=== PATIENT | female | born 1970 | race Caucasian/White ===

== ENCOUNTER 2024-03-10 03:20 | Observation (INO) | payer OTHER ==
[2024-03-10 06:21] LABS: INR 0.9 (<1.2); Partial Thromboplastin Time 22.8 sec (22.0-30.0); Prothrombin Time 10.4 sec (10.0-12.5)
[2024-03-10 06:25] LABS: ALT 17 U/L (4-34); AST 33 U/L (14-36); African American GFR (CKD) >90 (>60 ml/min/1.73 sqM); Albumin 4.6 g/dL (3.5-5.0); Alkaline Phosphatase 86 U/L (38-126); Anion Gap 5 mmol/L; Blood Urea Nitrogen 9 mg/dL (7-17); Calcium 9.2 mg/dL (8.4-10.2); Carbon Dioxide 24 mmol/L (22-30); Chloride 108 mmol/L (98-107); Glucose 97 mg/dL (74-99); Magnesium 1.9 mg/dL (1.6-2.3); Non-African American GFR(CKD) 90 (>60 ml/min/1.73 sqM); Potassium 4.2 mmol/L (3.5-5.1); Sodium 137 mmol/L (137-145); Total Bilirubin 0.6 mg/dL (0.2-1.3)
[2024-03-10 06:27] LABS: Basophils # (A) 0.1 k/uL (0-0.2); Basophils % (A) 0 %; Eosinophils # (A) 0.1 k/uL (0-0.7); Eosinophils % (A) 1 %; HCT 40.9 % (34.0-46.0); HGB 13.1 gm/dL (11.4-16.0); Lymphocytes # (A) 0.8 k/uL (1.0-4.8); Lymphocytes % (A) 5 %; MCH 31.7 pg (25.0-35.0); MCHC 32.1 g/dL (31.0-37.0); MCV 98.9 fL (80.0-100.0); Mean Platelet Volume 7.3; Monocytes # (A) 0.8 k/uL (0-1.0); Monocytes % (A) 4 %; Neutrophils # (A) 16.1 k/uL (1.3-7.7); Neutrophils % (A) 90 %; Platelet Count 278 k/uL (150-450); RBC 4.14 m/uL (3.80-5.40); RDW 12.6 % (11.5-15.5); WBC 17.9 k/uL (3.8-10.6)
--- NOTE | 2024-03-10 06:31 | XR ---
EXAM: XR Chest, 2 Views CLINICAL HISTORY: Chest Pain TECHNIQUE: Frontal and lateral views of the chest. COMPARISON: No relevant prior studies available. FINDINGS: Lungs: Unremarkable. No consolidation. Pleural space: Unremarkable. Mediastinum: Unremarkable. Normal mediastinal contour. Bones/joints: Artificial disc replacement of lower cervical spine. IMPRESSION: No acute findings in the chest.
--- NOTE | 2024-03-10 06:58 | ED ---
Chest Pain HPI - General Chief Complaint: Chest Pain Stated Complaint: Chest pain Time Seen by Provider: 03/10/24 06:29 Source: patient, RN notes reviewed Mode of arrival: ambulatory Limitations: no limitations - History of Present Illness Initial Comments: This is a 53-year-old female who presents to the emergency department for chest pain. States that last night around 9 PM she had a generalized discomfort in her chest and around 1 AM the pain became much more severe. States that she also felt like she could not take a deep breath. She was given aspirin and nitro by EMS. States that her pain went from a 9-10 down to a 3, however it took a while for the pain to come down. Since being in the waiting room her pain has started to creep back up to a 5-6 out of 10. She did have a stress test with Dr. Bowens a couple of weeks ago, but has not heard back regarding the results. She has a family history of premature coronary artery disease in her father. Denies any history of heart attacks or stents. MD Complaint: chest pain - Related Data Home Medications Medication Instructions Recorded Confirmed ALPRAZolam [Xanax] 0.25 - 0.5 mg PO Q6H PRN 03/10/24 03/10/24 HYDROcodone/APAP 10-325MG [[place] 1 tab PO Q6H PRN 03/10/24 03/10/24 10-325] Loratadine [Claritin] 10 mg PO DAILY 03/10/24 03/10/24 Losartan [Cozaar] 50 mg PO DIRECTED 03/10/24 03/10/24 Omeprazole 20 mg PO DAILY 03/10/24 03/10/24 Allergies Allergy/AdvReac Type Severity Reaction Status Date / Time bee venom protein (honey bee) Allergy Anaphylaxis Verified 03/10/24 08:17 epinephrine Allergy Anaphylaxis, Verified 03/10/24 08:17 seizures onion Allergy Anaphylaxis Verified 03/10/24 08:17 Influenza Virus Vaccines AdvReac seizures Verified 03/10/24 08:17 rosuvastatin [From Crestor] AdvReac Nausea & Verified 03/10/24 08:17 Vomiting Review of Systems ROS Statement: Those systems with pertinent positive or pertinent negative responses have been documented in the HPI. ROS Other: All systems not noted in ROS Statement are negative. Past Medical History Past Medical History: Cancer, GERD/Reflux, Hypertension Additional Past Medical History / Comment(s): back pain, bladder CA , History of Any Multi-Drug Resistant Organisms: None Reported Past Surgical History: Appendectomy, Back Surgery, Hysterectomy Past Psychological History: Anxiety, Bipolar Smoking Status: Current every day smoker Past Alcohol Use History: Rare Past Drug Use History: Marijuana General Exam Limitations: no limitations General appearance: alert, in no apparent distress Head exam: Present: atraumatic, normocephalic, normal inspection Respiratory exam: Present: normal lung sounds bilaterally. Absent: respiratory distress, wheezes, rales, rhonchi, stridor Cardiovascular Exam: Present: regular rate, normal rhythm, normal heart sounds. Absent: systolic murmur, diastolic murmur, rubs, gallop, clicks GI/Abdominal exam: Present: soft, tenderness (LUQ), normal bowel sounds. Absent: distended, guarding, rebound, rigid Neurological exam: Present: alert, oriented X3, CN II-XII intact Psychiatric exam: Present: normal affect, normal mood Skin exam: Present: warm, dry, intact, normal color. 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 Was pt. sent in by a medical professional or institution? @ -No Did you speak to anyone other than the patient for history? @ -No Did you review nursing and triage notes? @ -Yes, and I agree, it is accurate with regards to the patient's symptoms. Were old charts reviewed? @ -No Differential Diagnosis? @ -Differential Chest Pain: Stable Angina, Unstable Angina, STEMI, NSTEMI Aortic Dissection, Pneumothorax, Musculoskeletal, Esophageal Spasm GERD, Cholecystitis, Pancreatitis, Zoster, this is not meant to be an all-inclusive list. EKG interpreted by me (3pts min.)? @ -EKG interpreted by me demonstrating the following: Sinus rhythm. Ventricular rate 70 bpm, NM interval 136 ms, QRS duration 77 ms, QTc 415 ms. X-rays interpreted by me (1pt min.)? @ -Chest x-ray obtained, my interpretation identifies no localized consolidations or infiltrates. CT interpreted by me (1pt min.)? @ -Not obtained U/S interpreted by me (1pt. min.)? @ -Not obtained What testing was considered but not performed? (CT, X-rays, U/S, labs)? Why? @ -None What meds were considered but not given? Why? @ -None Did you discuss the management of the patient with other professionals? @ -Yes, Dr. Amaral, who accepts the patient for admission. Did you reconcile home meds? @ -Yes Was smoking cessation discussed for >3mins.? @ -No Was critical care preformed (if so, how long)? @ -No Were there social determinants of health that impacted care today? How? (Homelessness, low income, unemployed, alcoholism, drug addiction, transportation, low edu. Level, literacy, decrease access to med. care, fci, rehab)? @ -No Was there de-escalation of care discussed even if they declined? (Discuss DNR or withdrawal of care, Hospice)? @ -No What co-morbidities impacted this encounter? (DM, HTN, Smoking, COPD, CAD, Cancer, CVA, Hep., AIDS, mental health diagnosis, sleep apnea, morbid obesity)? @ -GERD, HTN Was patient admitted / discharged? @ -Admitted. Lab work demonstrates leukocytosis with a white blood cell count of 17.9. Lab work was otherwise unremarkable. Troponin and D-dimer negative. Chest x-ray reveals no acute process. When the patient's pain began early this morning it was originally around an 8-9 out of 10. After receiving nitro and aspirin from EMS the pain reduced down to a 3. Pain did start to creep back up while the patient was in the waiting room, and when she was brought back in the emergency department Nitropaste was applied. Given the patient's symptoms, improvement with nitroglycerin, and strong family history of CAD, patient admitted to medicine for cardiac observation. Serial troponins ordered and consult was placed for cardiology. Urinalysis ordered with results pending at the time of admission to evaluate for other potential causes of the leukocytosis. Undiagnosed new problem with uncertain prognosis? @ -None Drug Therapy requiring intensive monitoring for toxicity (Heparin, Nitro, Insulin, Cardizem)? @ -None Were any procedures done? @ -None Diagnosis/symptom? @ -Chest pain Acute, or Chronic, or Acute on Chronic? @ -Acute Uncomplicated (without systemic symptoms) or Complicated (systemic symptoms)? @ -Uncomplicated Side effects of treatment? @ -None Exacerbation, Progression, or Severe Exacerbation] @ -Not applicable Poses a threat to life or bodily function? @ -Yes, ACS can lead to This case was discussed in detail with the attending ED physician, Dr. Broussard. Presentation, findings, and treatment plan discussed in detail as well. Disposition Clinical Impression: Chest pain Disposition: ADMITTED IP TO THIS HOSP Referrals: Celestine Gross MD [Primary Care Provider] - 1-2 days Time of Disposition: 07:57
[2024-03-10] MEDS ORDERED: ONDANSETRON 4 MG/2 ML VIAL IVP PRN (07:57)
[2024-03-10] MEDS ORDERED: NALOXONE 0.4 MG/ML 1 ML VIAL IV PRN (07:57)
[2024-03-10] MEDS ORDERED: KETOROLAC 15 MG/ML 1 ML VIAL IVP PRN (07:57)
[2024-03-10] MEDS ORDERED: HYDROcodone/APAP 5-325MG 1 EACH TAB PO PRN (07:57)
[2024-03-10] MEDS: SODIUM CHLORIDE 0.9% 1,000 ML IV STA (08:01)
[2024-03-10] MEDS: NITROGLYCERIN OINT 1 INCH/GM PACKET TOPICAL STA (08:01)
[2024-03-10 08:12] LABS: Amylase 57 U/L (30-110); Lipase 63 U/L (23-300)
[2024-03-10] MEDS: PANTOPRAZOLE 40 MG/10 ML VIAL IV SCH (08:18)
[2024-03-10] MEDS ORDERED: ALPRAZolam 0.25 MG TAB PO PRN (08:26)
[2024-03-10] MEDS ORDERED: HYDROcodone/APAP 10-325MG 1 EACH TAB PO PRN (08:26)
[2024-03-10] MEDS ORDERED: LOSARTAN 50 MG TAB PO SCH (08:30)
[2024-03-10] MEDS: MORPHINE SULFATE 4 MG/ML SYRINGE IV PRN (08:35)
[2024-03-10] MEDS: PANTOPRAZOLE 40 MG TABLET PO SCH (09:20)
--- NOTE | 2024-03-10 10:05 | P.HPIM ---
History of Present Illness H&P Date: 03/10/24 History of present illness; patient 53-year-old lady with past medical history significant for hypertension who presented to ER because of chest pain. Patient stated that she was all right last night when she started experiencing chest discomfort that was central in location, nonradiating, pressure-like, aggravated by taking deep breaths no relieving factor associated with this chest pain. Gradually the pain worsened and around 1 AM in the morning pain became very worse so she had to come to the ER. Patient denies any shortness of breath. There is no complaint of palpitation. Denies nausea, vomiting abdominal pain. There is no complaint orthopnea or PND. Patient does follow-up with cardiology and did have a recent stress test done the results of which are unknown to her. Initial lab work done in the ER showed WBC 17.9, hemoglobin 13.1, platelet count 278, sodium 137, potassium 4.2, BUN 9, creatinine 0.76, AST 33, ALT 17, troponin 0.012, lipase 63 EKG done in the ER showed heart rate of 70, no ST segment elevation or depression seen, no T-wave inversions seen. Chest x-ray done in the ER showed no acute finding in the chest Patient admitted to internal medicine service REVIEW OF SYSTEMS: CONSTITUTIONAL: No fever, no malaise, no fatigue. HEENT: No recent visual problems or hearing problems. Denied any sore throat. CARDIOVASCULAR: As mentioned above PULMONARY: No shortness of breath, no cough, no hemoptysis. GASTROINTESTINAL: No diarrhea, no nausea, no vomiting, no abdominal pain. NEUROLOGICAL: No headaches, no weakness, no numbness. HEMATOLOGICAL: Denies any bleeding or petechiae. GENITOURINARY: Denies any burning micturition, frequency, or urgency. MUSCULOSKELETAL/RHEUMATOLOGICAL: Denies any joint pain, swelling, or any muscle pain. ENDOCRINE: Denies any polyuria or polydipsia. The rest of the 14-point review of systems is negative. PHYSICAL EXAMINATION: GENERAL: The patient is alert and oriented x3, not in any acute distress. Well developed, well nourished. HEENT: Pupils are round and equally reacting to light. EOMI. No scleral icterus. No conjunctival pallor. Normocephalic, atraumatic. No pharyngeal erythema. No thyromegaly. CARDIOVASCULAR: S1 and S2 present. No murmurs, rubs, or gallops. PULMONARY: Chest is clear to auscultation, no wheezing or crackles. ABDOMEN: Soft, nontender, nondistended, normoactive bowel sounds. No palpable organomegaly. MUSCULOSKELETAL: No joint swelling or deformity. EXTREMITIES: No cyanosis, clubbing, or pedal edema. NEUROLOGICAL: Gross neurological examination did not reveal any focal deficits. SKIN: No rashes. Assessment and plan Chest pain, rule out acute coronary syndrome Hypertension Monitor vital signs Monitor CBC Monitor CMP Continue telemetry monitoring Trend troponin. Ordered 2D echo Resume losartan Continue Prilosec Consult cardiology Labs and medication were reviewed.. Continue same treatment. Continue with symptomatic treatment. Resume home medication. Monitor labs and vitals. DVT and GI prophylaxis. Further recommendations as per clinical course of the patient Dictation was produced using [employer] dictation software. please excuse any grammatical, word or spelling errors. Past Medical History Past Medical History: Cancer, GERD/Reflux, Hypertension Additional Past Medical History / Comment(s): back pain, bladder CA , History of Any Multi-Drug Resistant Organisms: None Reported Past Surgical History: Appendectomy, Back Surgery, Hysterectomy Past Psychological History: Anxiety, Bipolar Smoking Status: Current every day smoker Past Alcohol Use History: Rare Past Drug Use History: Marijuana Medications and Allergies Home Medications Medication Instructions Recorded Confirmed Type ALPRAZolam [Xanax] 0.25 - 0.5 mg PO Q6H PRN 03/10/24 03/10/24 History HYDROcodone/APAP 10-325MG [[place] 1 tab PO Q6H PRN 03/10/24 03/10/24 History 10-325] Loratadine [Claritin] 10 mg PO DAILY 03/10/24 03/10/24 History Losartan [Cozaar] 50 mg PO DIRECTED 03/10/24 03/10/24 History Omeprazole 20 mg PO DAILY 03/10/24 03/10/24 History Allergies Allergy/AdvReac Type Severity Reaction Status Date / Time bee venom protein (honey bee) Allergy Anaphylaxis Verified 03/10/24 08:17 epinephrine Allergy Anaphylaxis, Verified 03/10/24 08:17 seizures onion Allergy Anaphylaxis Verified 03/10/24 08:17 Influenza Virus Vaccines AdvReac seizures Verified 03/10/24 08:17 rosuvastatin [From Crestor] AdvReac Nausea & Verified 03/10/24 08:17 Vomiting Physical Exam Vitals: Vital Signs Temp Pulse Pulse Resp BP Pulse Ox 03/10/24 08:23 98.4 F 91 16 147/93 100 03/10/24 07:45 98.4 F 75 22 124/84 98 03/10/24 07:36 76 03/10/24 05:35 97.8 F 62 16 138/79 100 03/10/24 03:25 97.4 F L 57 L 16 120/76 99 Intake and Output 03/09/24 03/10/24 03/10/24 22:59 06:59 14:59 Other: Weight 52.163 kg Results CBC & Chem 7: 03/10/24 05:53 03/10/24 05:53 Labs: Abnormal Lab Results - Last 24 Hours (Table) 03/10/24 03/10/24 Range/Units 05:53 05:53 WBC 17.9 H (3.8-10.6) k/uL Neutrophils # 16.1 H (1.3-7.7) k/uL Lymphocytes # 0.8 L (1.0-4.8) k/uL Chloride 108 H (98-107) mmol/L
[2024-03-10] MEDS: LORATADINE 10 MG TAB PO SCH (12:00)
[2024-03-10 12:21] LABS: Appearance,Urine Cloudy (Clear); Bilirubin,Urine Negative (Negative); Blood,Urine Negative (Negative); Color,Urine Light Yellow; Glucose,Urine (UA) Negative (Negative); Ketones,Urine Negative (Negative); Leukocyte Esterase,Urine Negative (Negative); Mucus,Urine Moderate /hpf; Nitrite,Urine Negative (Negative); Protein,Urine Negative (Negative); RBC,Urine 1 /hpf (0-5); Specific Gravity,Urine 1.012 (1.001-1.035); Squamous Epithelial Cell,Urine 2 /hpf (0-4); Urobilinogen,Urine <2.0 mg/dL (<2.0); WBC,Urine <1 /hpf (0-5)
[2024-03-10] MEDS: ACETAMINOPHEN TAB 325 MG TAB PO PRN (12:32)
[2024-03-10 13:46] VITALS: RESP 18
--- NOTE | 2024-03-10 14:10 | P.CRDCN ---
History of Present Illness Consult date: 03/10/24 History of present illness: HISTORY OF PRESENTING ILLNESS 53-year-old with PMH of hypertension, tobacco use, GERD symptoms. He sees Dr. Bowens. She had a recent MPI stress test in January 2024 which did not show any reversible or fixed perfusion defects or ischemia. Recent clinic visit her antihypertensives were increased to losartan 100 mg daily. She is also statin intolerant as she gets nausea and vomiting with statins. She is being worked up on outpatient basis for getting evaluated for hiatal hernia. She also has cervical vertebral disc surgery in the past and she feels that her symptoms could be related to that as well. This time she presents to the hospital because of diffuse upper chest pain and muscle stiffness to bilateral shoulder girdle along with burning sensation in her left arm. Her troponin x 3 have been negative. WBC was slightly elevated, platelets are normal hemoglobin is normal, creatinine 0.7. Her ECG shows normal sinus rhythm with no resting ST or T wave changes that are diagnostic for ischemia. REVIEW OF SYSTEMS 14 point review of system is negative except what is mentioned above in HPI. PHYSICAL EXAMINATION Vital signs reviewed. Head: Normocephalic. Eyes: Sclerae nonicteric. Neck: Brisk carotid upstroke, no jugular venous distention. Lungs: Clear to auscultation. Heart: Regular rate and rhythm, S1-S2, no S3, no murmur or rub. Abdomen: Soft nontender, minimal tenderness in epigastric area. Extremities: No edema, intact distal pulses. Neuro: Alert, oritented, no focal deficits. Detailed neuro exam was not performed. ASSESSMENT Atypical chest pain, ruled out of ACS Essential hypertension Statin intolerance Tobacco smoker GERD Prior history of cervical spine surgery Mild epigastric tenderness likely related to GERD and dyspepsia PLAN Continue losartan 100 mg daily. Would not be able to start statins because of intolerance. Will not do aspirin at this time because of her GERD and dyspepsia symptoms. Recommend Protonix prior to discharge Recommend outpatient GI evaluation Outpatient follow-up with cardiology as scheduled. At this time patient is stable from cardiovascular standpoint. Her symptoms are minimally responsive to nitro but did respond to pain medication. Patient is cleared to be discharged from cardiac standpoint Tee Tidwell MD, FACC, RPVI Thank you for allowing [facility] to participate in this patient's care. Feel free to reach out in case of any followup questions. Past Medical History Past Medical History: Cancer, GERD/Reflux, Hypertension Additional Past Medical History / Comment(s): back pain, bladder CA , History of Any Multi-Drug Resistant Organisms: None Reported Past Surgical History: Appendectomy, Back Surgery, Hysterectomy Past Psychological History: Anxiety, Bipolar Smoking Status: Current every day smoker Past Alcohol Use History: Rare Past Drug Use History: Marijuana Medications and Allergies Home Medications Medication Instructions Recorded Confirmed Type ALPRAZolam [Xanax] 0.25 - 0.5 mg PO Q6H PRN 03/10/24 03/10/24 History HYDROcodone/APAP 10-325MG [[facility] 1 tab PO Q6H PRN 03/10/24 03/10/24 History 10-325] Loratadine [Claritin] 10 mg PO DAILY 03/10/24 03/10/24 History Losartan [Cozaar] 50 mg PO DIRECTED 03/10/24 03/10/24 History Omeprazole 20 mg PO DAILY 03/10/24 03/10/24 History Allergies Allergy/AdvReac Type Severity Reaction Status Date / Time bee venom protein (honey bee) Allergy Anaphylaxis Verified 03/10/24 08:17 epinephrine Allergy Anaphylaxis, Verified 03/10/24 08:17 seizures onion Allergy Anaphylaxis Verified 03/10/24 08:17 Influenza Virus Vaccines AdvReac seizures Verified 03/10/24 08:17 rosuvastatin [From Crestor] AdvReac Nausea & Verified 03/10/24 08:17 Vomiting Physical Exam Vitals: Vital Signs Temp Pulse Pulse Resp BP Pulse Ox 03/10/24 13:45 99.4 F 75 18 120/69 97 03/10/24 12:02 99.3 F 94 19 132/78 98 03/10/24 08:23 98.4 F 91 16 147/93 100 03/10/24 07:45 98.4 F 75 22 124/84 98 03/10/24 07:36 76 03/10/24 05:35 97.8 F 62 16 138/79 100 03/10/24 03:25 97.4 F L 57 L 16 120/76 99 Intake and Output 03/09/24 03/10/24 03/10/24 22:59 06:59 14:59 Other: Weight 52.163 kg Results 03/10/24 05:53 03/10/24 05:53 Cardiac Enzymes 03/10/24 03/10/24 03/10/24 Range/Units 05:53 05:53 09:09 AST 33 (14-36) U/L Troponin I <0.012 <0.012 (0.000-0.034) ng/mL 03/10/24 Range/Units 11:51 AST (14-36) U/L Troponin I <0.012 (0.000-0.034) ng/mL Coagulation 03/10/24 Range/Units 05:53 PT 10.4 (10.0-12.5) sec APTT 22.8 (22.0-30.0) sec CBC 03/10/24 Range/Units 05:53 WBC 17.9 H (3.8-10.6) k/uL RBC 4.14 (3.80-5.40) m/uL Hgb 13.1 (11.4-16.0) gm/dL Hct 40.9 (34.0-46.0) % Plt Count 278 (150-450) k/uL Comprehensive Metabolic Panel 03/10/24 Range/Units 05:53 Sodium 137 (137-145) mmol/L Potassium 4.2 (3.5-5.1) mmol/L Chloride 108 H (98-107) mmol/L Carbon Dioxide 24 (22-30) mmol/L BUN 9 (7-17) mg/dL Creatinine 0.76 (0.52-1.04) mg/dL Glucose 97 (74-99) mg/dL Calcium 9.2 (8.4-10.2) mg/dL AST 33 (14-36) U/L ALT 17 (4-34) U/L Alkaline Phosphatase 86 (38-126) U/L Total Protein 7.0 (6.3-8.2) g/dL Albumin 4.6 (3.5-5.0) g/dL Current Medications Generic Name Dose Route Start Last Admin Trade Name Freq PRN Reason Stop Dose Admin Acetaminophen 650 mg 03/10/24 07:57 03/10/24 12:32 Acetaminophen Tab 325 Mg Tab PO 650 mg Q6HR PRN Administration Mild Pain or Fever > 100.5 Hydrocodone Bitart/Acetaminophen 1 each 03/10/24 07:57 Hydrocodone/Apap 5-325mg 1 Each Tab PO Q4HR PRN Moderate Pain (Scale 4 to 6) Hydrocodone Bitart/Acetaminophen 1 each 03/10/24 08:26 Hydrocodone/Apap 10-325mg 1 Each Tab PO Q6H PRN Pain 7-10 Alprazolam 0.25 - 0.5 mg 03/10/24 08:26 Alprazolam 0.25 Mg Tab PO Q6H PRN Anxiety Ibuprofen 400 mg 03/10/24 07:57 Ibuprofen 400 Mg Tab PO Q6HR PRN Mild Pain or Fever > 100.5 Ketorolac Tromethamine 15 mg 03/10/24 07:57 Ketorolac 15 Mg/Ml 1 Ml Vial IVP 03/13/24 07:58 Q6HR PRN Moderate Pain (Scale 4 to 6) Loratadine 10 mg 03/10/24 09:00 03/10/24 12:00 Loratadine 10 Mg Tab PO 10 mg DAILY WOOD Administration Losartan Potassium 100 mg 03/11/24 14:06 Losartan 50 Mg Tab PO DIRECTED WOOD Morphine Sulfate 4 mg 03/10/24 07:57 03/10/24 08:35 Morphine Sulfate 4 Mg/Ml Syringe IV 4 mg Q4HR PRN Administration Severe Pain (Scale 7 to 10) Naloxone HCl 0.2 mg 03/10/24 07:57 Naloxone 0.4 Mg/Ml 1 Ml Vial IV Q2M PRN Opioid Reversal Ondansetron HCl 4 mg 03/10/24 07:57 Ondansetron 4 Mg/2 Ml Vial IVP Q8HR PRN Nausea And Vomiting Pantoprazole Sodium 40 mg 03/10/24 09:00 03/10/24 09:20 Pantoprazole 40 Mg Tablet PO Not Given DAILY WOOD Intake and Output 03/09/24 03/10/24 03/10/24 22:59 06:59 14:59 Other: Weight 52.163 kg 03/10/24 05:53 03/10/24 05:53
[2024-03-10] MEDS: IBUPROFEN 400 MG TAB PO PRN (14:31)
[2024-03-10 15:20] VITALS: BP 119/74; PULSE 87; TEMP 98.5
[2024-03-11] MEDS ORDERED: LOSARTAN 50 MG TAB PO SCH (15:00)
--- NOTE | 2024-03-12 09:58 | P.DS ---
Providers Date of admission: 03/10/24 08:33 Expected date of discharge: 03/10/24 Attending physician: Don Amaral Consults: 03/10/24 07:57 Consult Physician Urgent Consulting Provider: Tee Tidwell Consult Reason/Comments: Chest pain Do you want consulting provider notified?: Yes Primary care physician: [facility] Hospital Course: Discharge diagnoses; Chest pain,acute coronary syndrome ruled out Hypertension Hospital course; patient 53-year-old lady with past medical history significant for hypertension who presented to ER because of chest pain. Patient stated that she was all right last night when she started experiencing chest discomfort that was central in location, nonradiating, pressure-like, aggravated by taking deep breaths no relieving factor associated with this chest pain. Gradually the pain worsened and around 1 AM in the morning pain became very worse so she had to come to the ER. Patient denies any shortness of breath. There is no complaint of palpitation. Denies nausea, vomiting abdominal pain. There is no complaint orthopnea or PND. Patient does follow-up with cardiology and did have a recent stress test done the results of which are unknown to her. Initial lab work done in the ER showed WBC 17.9, hemoglobin 13.1, platelet count 278, sodium 137, potassium 4.2, BUN 9, creatinine 0.76, AST 33, ALT 17, troponin 0.012, lipase 63 EKG done in the ER showed heart rate of 70, no ST segment elevation or depression seen, no T-wave inversions seen. Chest x-ray done in the ER showed no acute finding in the chest Patient admitted to internal medicine service Patient was eval by cardiology, they recommended adding Prilosec at discharge, not recommending ischemic workup at this time. Cardiology cleared the patient for discharge PHYSICAL EXAMINATION: GENERAL: The patient is alert and oriented x3, not in any acute distress. Well developed, well nourished. HEENT: Pupils are round and equally reacting to light. EOMI. No scleral icterus. No conjunctival pallor. Normocephalic, atraumatic. No pharyngeal erythema. No thyromegaly. CARDIOVASCULAR: S1 and S2 present. No murmurs, rubs, or gallops. PULMONARY: Chest is clear to auscultation, no wheezing or crackles. ABDOMEN: Soft, nontender, nondistended, normoactive bowel sounds. No palpable organomegaly. MUSCULOSKELETAL: No joint swelling or deformity. EXTREMITIES: No cyanosis, clubbing, or pedal edema. NEUROLOGICAL: Gross neurological examination did not reveal any focal deficits. SKIN: No rashes. Dictation was produced using [employer] dictation software. please excuse any grammatical, word or spelling errors. Patient Condition at Discharge: Fair Plan - Discharge Summary New Discharge Prescriptions: Continue HYDROcodone/APAP 10-325MG [[place] 10-325] 1 tab PO Q6H PRN PRN Reason: Pain Loratadine [Claritin] 10 mg PO DAILY ALPRAZolam [Xanax] 0.25 - 0.5 mg PO Q6H PRN PRN Reason: Anxiety Losartan [Cozaar] 50 mg PO BID Changed Omeprazole 20 mg PO DIRECTED 30 Days #37 cap Discharge Medication List ALPRAZolam [Xanax] 0.25 - 0.5 mg PO Q6H PRN 03/10/24 [History] HYDROcodone/APAP 10-325MG [[place] 10-325] 1 tab PO Q6H PRN 03/10/24 [History] Loratadine [Claritin] 10 mg PO DAILY 03/10/24 [History] Losartan [Cozaar] 50 mg PO BID 03/10/24 [History] Omeprazole 20 mg PO DIRECTED 30 Days #37 cap 03/10/24 [Rx] Follow up Appointment(s)/Referral(s): Tee Tidwell MD [Medical Doctor] - As Needed Celestine Gross MD [Primary Care Provider] - 1-2 days Patient Instructions/Handouts: Chest Pain (DC) Discharge Disposition: HOME SELF-CARE
== END 2024-03-10 18:06 | disposition home or self-care (01) ==
LOC: EC 03:20 → 6NMEDSUR 08:33
PROVIDERS: ADMIT Internal Medicine; ATTEND Internal Medicine
DX: R07.89 Other chest pain (principal); I10 Essential (primary) hypertension; K21.9 Gastro-esophageal reflux disease without esophagitis; Z90.49 Acquired absence of other specified parts of digestive tract; F17.210 Nicotine dependence, cigarettes, uncomplicated
CPT/HCPCS: 96361; 96365; 96375; 99285; 36415; 93005; 85379; 80053; 82150; 83690; 83735; 84484; 85025; 85610; 85730; 81001; 84145; 71046; G0378; J2270; C9113